=== PATIENT | male | born 1960 | race Hispanic/Latino ===

== ENCOUNTER 2018-02-17 13:41 | Outpatient (CLI) | payer BC ==
[2018-02-17] MEDS ORDERED: ISOVUE-370 76%-LOCM 1 ML ONE (13:43)
--- NOTE | 2018-02-17 16:53 | CT ---
CHEST CT WITH CONTRAST DATE: 03/07/2018. COMPARISON: 01/03/2017. HISTORY: Interstitial lung disease, prior abnormal imaging. TECHNIQUE: Serial axial CT imaging obtained at 3 mm intervals from the thoracic inlet through the upper abdomen with IV contrast. Coronal reformatted imaging obtained. FINDINGS: Imaged upper abdomen demonstrates a stable LAP band. The upper abdomen is unchanged in appearance. The axillary regions demonstrate no evidence for adenopathy. There are multiple mildly prominent nodes within the prevascular space measuring up to 1 cm in short axis dimension, stable. There is a stable mildly enlarged node n the right paratracheal region. Non specific bilateral mild hilar lymphadenopathy is present, stable. There is mild mary prominence in the subcarinal space measuring up to 1.2 cm in short axis dimension, stable as well. No significant pleural, pericardial, or mediastinal fluid is seen. The vascular structures appear patent. As seen on the prior examination, there is coarse linear interstitial density noted throughout both l ungs with an upper lobe predominance, right greater than left. No significant bronchiectasis is note d. Subpleural cystic changes are noted bilaterally including the costophrenic angle regions and the lung apices, right greater than left. The degree of subpleural cystic change progressing slightly in the right lung apex when compared to the prior exam. The degree of linear interstitial density appears to have worsened since the prior examination, parti cularly in the upper lobes. In addition, there are areas of ground-glass opacity noted within bilate ral upper lobes, right greater than left, which does appear slightly more conspicuous than on the deangelo or examination. No discrete pulmonary parenchymal nodule or mass lesion. Review of the osseous structures demonstrates no acute findings. IMPRESSION: Progression of interstitial opacity with upper lobe predominance and scattered areas of bilateral upp er lobe ground-glass opacity, right greater than left. Hypersensitivity pneumonitis is the favored e tiology. Clinical correlation is essential. CODE T POS: DONG
== END 2018-02-17 13:42 | disposition home or self-care (01) ==
LOC: BICCT 13:41
PROVIDERS: ATTEND Nurse Practitioner Family
DX: J84.9 Interstitial pulmonary disease, unspecified (principal); R09.89 Other specified symptoms and signs involving the circulatory and respiratory systems; R91.8 Other nonspecific abnormal finding of lung field; J67.9 Hypersensitivity pneumonitis due to unspecified organic dust; Z72.0 Tobacco use
CPT/HCPCS: 71260

== ENCOUNTER 2021-08-21 13:12 | Outpatient (CLI) | payer BC | END 2021-08-21 13:13 | disposition home or self-care (01) | LOC: RAD 13:12 | PROVIDERS: ATTEND Internal Medicine Critical Care Medicine | DX: R06.00 Dyspnea, unspecified (principal); J98.4 Other disorders of lung; Z98.1 Arthrodesis status | CPT/HCPCS: 71046 ==

== ENCOUNTER 2024-01-30 13:08 | Outpatient (CLI) | payer BC, MEDICARE | END 2024-01-30 13:09 | disposition home or self-care (01) | LOC: BICRAD 13:08 | PROVIDERS: ATTEND Internal Medicine Rheumatology | DX: M17.0 Bilateral primary osteoarthritis of knee (principal) | CPT/HCPCS: 73565 ==